=== PATIENT | female | born 1930 | race Caucasian/White ===

== ENCOUNTER → 2019-01-23 | Outpatient (CLI) | payer OTHER ==
[~2019-01-23] MED LIST: ANTIVERT25 MG PO; ASPIR 8181 MG PO; DIAZEPAM 2MG TAB2 MG PO; LOPRESSOR100 M1 PO; NORVASC5 MG PO; PLAVIX 75 MG TA75 MG PO; SCOPOLAMINE1 EACH TRANSDERM; VALIUM5 MG PO; ZOCOR20 MG PO; ZOFRAN ODT4 MG DISSOLVE
[2019-01-23 11:18] LABS: CALCIUM 9.1 mg/dL (8.5-10.1); CREATININE 1.1 mg/dL (0.6-1.3)
== END ==
LOC: M.LAB 10:28
PROVIDERS: Internal Medicine Cardiovascular Disease
DX: I10 Essential (primary) hypertension (principal)

== ENCOUNTER → 2019-10-07 | Outpatient (CLI) | payer OTHER ==
[2019-10-07 09:25] LABS: ANION GAP 10 mmol/L (7-16); BUN 17 mg/dL (7-18); CALCIUM 8.9 mg/dL (8.5-10.1); CHLORIDE 107 mmol/L (98-107); CHOLESTEROL 158 mg/dL (<200); CO2 26 mmol/L (21-32); CREATININE 1.2 mg/dL (0.6-1.3); GLUCOSE 98 mg/dL (70-99); HDL CHOLESTEROL 48 mg/dL (>40); LDL CHOLESTEROL 88 mg/dL (<100); POTASSIUM 4.5 mmol/L (3.5-5.1); SERUM ASSESSMENT Clear; SODIUM 143 mmol/L (136-145); TC:HDL 3.3 Ratio (Not establshd); TRIGLYCERIDE 113 mg/dL (<150); VLDL 23 mg/dL (<40)
== END ==
LOC: M.LAB 08:17
PROVIDERS: Nurse Practitioner
DX: E78.2 Mixed hyperlipidemia (principal); I10 Essential (primary) hypertension

== ENCOUNTER 2020-09-07 10:32 | Inpatient (IN) | payer OTHER ==
[~2020-09-07] VITALS: Ht 162.6 cm; Wt 76.2 kg
--- NOTE | ~2020-09-07 | EEG ---
[address] [address] EEG STUDY REPORT Name: KARMA MARCELO Room: [address] IN M.R.#: [id number] Admission: 09/07/20 Attend Phys: Martin Gill Discharge: Date of : 34 Report #: [id number] THIS REPORT FOR: cc: Tank Santizo MD, Arthur MD ~ Arnulfo Morales MD DATE OF SERVICE: 09/08/2020 This patient is being evaluated for confusion. EEG was done by placing the electrode by standard 10-20 system of electrode placement. Both referential and sequential montages were used for recording. Background activity in this patient's EEG is about 9-10 Hz and 30 microvolts. This patient became drowsy and that is associated with bilateral slowing and vertex sharp waves. Photic stimulation is unremarkable. Throughout the record, no active epileptiform activity was noticed. IMPRESSION: This patient's EEG is intermixed with slight theta range slowing on both sides. That is a nonspecific abnormality, which can occur with dementia, encephalopathy, effect of psychotropic medication, etc. Clinical correlation is recommended. By: [id number] Morales MD /nt
[2020-09-07 10:44] VITALS: BP 176/89
[2020-09-07 11:03] LABS: ABSOLUTE EOSINOPHILS 0.2 thou/uL (0.0-0.7); ABSOLUTE LYMPHOCYTES 1.7 thou/uL (0.8-5.3); ABSOLUTE MONOCYTES 0.5 thou/uL (0.0-1.2); ABSOLUTE NEUTROPHILS 3.9 thou/uL (1.6-8.1); BASOPHILS 0.7 %; EOSINOPHILS 2.4 %; HEMATOCRIT 44.2 % (37.0-47.0); HEMOGLOBIN 14.8 gm/dL (12.0-15.0); LYMPHOCYTES 26.3 %; MCH 30.5 pg (26.0-34.0); MCHC 33.6 g/dL (28.0-37.0); MCV 90.9 fL (80.0-100.0); MONOCYTES 8.5 %; MPV 8.5 fl. (7.2-11.1); NUCLEATED RBCS 0 /100WBC; PLATELET COUNT* 179 thou/uL (150-400); POLYS 62.1 %; RBC 4.86 mil/uL (4.20-5.00); RDW-CV 12.7 % (10.5-14.5); WBC 6.3 thou/uL (4.0-11.0)
[2020-09-07 11:07] LABS: CALCIUM 9.3 mg/dL (8.5-10.1); CREATININE 1.2 mg/dL (0.6-1.3); POTASSIUM 3.9 mmol/L (3.5-5.1)
[2020-09-07 11:12] LABS: ALBUMIN 3.8 g/dL (3.4-5.0); TOTAL BILIRUBIN 1.4 mg/dL (<0.1-1.0)
[2020-09-07 14:11] LABS: URINE BILIRUBIN NEGATIVE (Negative); URINE BLOOD NEGATIVE (Negative); URINE CLARITY CLEAR; URINE COLOR YELLOW; URINE GLUCOSE-RANDOM NEGATIVE (Negative); URINE KETONES NEGATIVE (Negative); URINE LEUKOCYTES-REFLEX NEGATIVE (Negative); URINE NITRITE-REFLEX NEGATIVE (Negative); URINE PROTEIN NEGATIVE (Negative); URINE UROBILINOGEN 0.2 E.U./dl (0.2-1.0)
[2020-09-07 16:00] VITALS: BP 163/69
--- NOTE | 2020-09-07 18:17 | EKG ---
[place] [address] ELECTROCARDIOGRAM REPORT Name: KARMA MARCELO Room: [place] [address] ADM [place] ..#: [id number] Admission: 09/07/20 Attend Phys: Amrit Jacob Discharge: Date of : 34 Date of Service: 09/07/20 1039 Report #: [id number] THIS REPORT FOR: //name// [facility] ED Test Date: 2020-09-07 Test Time: 10:39:27 Pat Name: KARMA MARCELO Department: Room: [facility] Gender: F Assistant Mechanic: TP : 1930 Requested By: Armand Alarcon Order Number: [id number] MD: Migel Zuñiga Measurements Intervals [place] Rate: 79 P: 73 VT: 155 QRS: 0 QRSD: 81 T: 55 QT: 431 QTc: 495 Interpretive Statements Sinus rhythm 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
[2020-09-07 19:35] LABS: APTT 28.2 Seconds (25.0-31.3); INR 1.1; PROTIME 11.4 Seconds (9.20-11.50)
[2020-09-07 20:16] VITALS: BP 157/95
[2020-09-08] VITALS: BP 153/50
[2020-09-08 04:00] VITALS: BP 114/42
[2020-09-08 06:17] LABS: CHOLESTEROL 148 mg/dL (<200); HDL CHOLESTEROL 46 mg/dL (>40); LDL CHOLESTEROL 81 mg/dL (<100); TC:HDL 3.2 Ratio (Not establshd); TRIGLYCERIDE 106 mg/dL (<150); VLDL 21 mg/dL (<40)
[2020-09-08 06:18] LABS: SERUM ASSESSMENT Clear
--- NOTE | 2020-09-08 13:03 | NUR ---
Pt is A&O. Resides at home alone. Independent and active. No DME. No hx of HH or SNF. Supportive sons that are involved in POC. Therapy evals ordered. ARU consult. Neuro following. Pt is hopeful to be able to return home. CM following for dc needs.
[2020-09-08 13:18] VITALS: BP 111/64; BP 128/44
--- NOTE | 2020-09-08 14:42 | 2DMMODE ---
[place] [address] 2 D/M-MODE ECHOCARDIOGRAM Name: KARMA MARCELO Room: [address] IN [facility].#: [id number] Admission: 09/07/20 Attend Phys: Amrit Jacob Discharge: Date of : 34 Date of Service: 09/08/20 1441 Report #: [id number] THIS REPORT FOR: cc: Tank Santizo MD, Arthur MD Holkins,Mac Dang MD [facility] ~ APPROVED REPORT Study performed: 09/08/2020 11:12:30 EXAM: Comprehensive 2D, Doppler, and color-flow Echocardiogram Patient Location: In-Patient Room #: [facility] Status: routine BSA: 1.82 HR: 58 bpm BP: 114/42 mmHg Rhythm: NSR Other Information Study Quality: Good Indications CVA/TIA Echo Enhancing Agent Indication: Rule out Shunt Agent(s) / Amount(s) Used: Agitated Saline 10 cc 2D Dimensions IVSd: 11.69 (7-11mm) LVOT Diam: 19.43 (18-24mm) LVDd: 49.78 mm PWd: 8.96 (7-11mm) Ascending Ao: 34.49 (22-36mm) LVDs: 27.99 (25-40mm) Aortic Root: 25.90 mm Volumes Left Atrial Volume (Systole) LA ESV Index: 29.80 mL/m2 Aortic Valve AoV Peak Javi.: 1.41 m/s AO Peak Gr.: 7.95 mmHg LVOT Max P.05 mmHg AO Mean Gr.: 4.23 mmHg LVOT Mean P.51 [place] [address] 2 D/M-MODE ECHOCARDIOGRAM Name: DAVIANKARMA Tejinder Room: [address] IN .R.#: [id number] Admission: 09/07/20 Attend Phys: Amrit Jacob Discharge: Date of : 34 Date of Service: 09/08/20 1441 Report #: [id number] LVOT Max V: 0.87 m/s AO V2 VTI: 30.20 cm LVOT Mean V: 0.56 m/s IFEANYI (VTI): 2.42 cm2 LVOT V1 VTI: 24.64 cm Mitral Valve E/A Ratio: 1.48 MV Decel. Time: 294.22 ms MV E Max Javi.: 0.61 m/s MV PHT: 85.32 ms MVA (PHT): 2.58 cm2 TDI E/Lateral E': 6.78 E/Medial E': 7.63 Medial E' Javi.: 0.08 m/s Lateral E' Javi.: 0.09 m/s Pulmonary Valve PV Peak Javi.: 0.76 m/s PV Peak Gr.: 2.33 mmHg Tricuspid Valve RAP Estimate: 5.00 mmHg TR Peak Gr.: 39.77 mmHg RVSP: 44.00 mmHg PA Pressure: 44.00 mmHg Left Ventricle The left ventricle is normal size. There is normal LV segmental wall motion. Borderline concentric left ventricular hypertrophy. Left ventricular systolic function is normal. The left ventricular ejection fraction is within the normal range. LVEF is 65%. The left ventricular diastolic function is normal. Right Ventricle The right ventricle is normal size. The right ventricular systolic function is normal. Atria Left atrium is mildly dilated. The interatrial septum is intact with no evidence for an atrial septal defect. The right atrium size is normal. Aortic Valve Mild aortic valve sclerosis. Trace aortic regurgitation. There is no aortic valvular stenosis. Mitral Valve The mitral valve is normal in structure. Mild [place] [address] 2 D/M-MODE ECHOCARDIOGRAM Name: KARMA MARCELO Room: [address] IN [facility]#: [id number] Admission: 09/07/20 Attend Phys: Amrit Jacob Discharge: Date of : 34 Date of Service: 09/08/20 1441 Report #: [id number] regurgitation. No evidence of mitral valve stenosis. Tricuspid Valve The tricuspid valve is normal in structure. Moderate tricuspid regurgitation. Moderate pulmonary hypertension. Pulmonic Valve The pulmonary valve is normal in structure. Trace pulmonic regurgitation. Great Vessels The aortic root is normal in size. IVC is normal in size and collapses >50% with inspiration. Pericardium There is no pericardial effusion. <Conclusion> The left ventricle is normal size. Borderline concentric left ventricular hypertrophy. Left ventricular systolic function is normal. The left ventricular ejection fraction is within the normal range. LVEF is 65%. The left ventricular diastolic function is normal. The right ventricle is normal size. Left atrium is mildly dilated. The right atrium size is normal. Mild aortic valve sclerosis. Trace aortic regurgitation. There is no aortic valvular stenosis. The mitral valve is normal in structure. Mild to moderate mitral regurgitation. The tricuspid valve is normal in structure. Moderate tricuspid regurgitation. Moderate pulmonary hypertension. IVC is normal in size and collapses >50% with inspiration. There is no pericardial effusion. There is normal LV segmental wall motion. The interatrial septum is intact with no evidence for an atrial septal defect. <ELECTRONICALLY SIGNED> By: Mac Schneider MD, FACC 09/08/20 144 [id number] 144 Mac Schneider MD, FACC /INF
[2020-09-08] MEDS ORDERED: ASPIR 8181 MG PO (18:41)
[2020-09-08] MEDS ORDERED: LOPRESSOR50 PO (18:41)
[2020-09-08] MEDS ORDERED: COZAAR 25 MG TA25 M2 PO (18:41)
[2020-09-08 18:47] VITALS: BP 111/64
[2020-09-09 02:06] LABS: GLYCOHEMOGLOBIN (HGB A1C) 5.4 % (4.8-5.6)
== END 2020-09-08 20:00 | disposition home or self-care (01) | DRG 149 ==
LOC: M.ERS 10:32 → M.2W 13:59 → M.TBA-ER 13:59 → M.2W 21:04
PROVIDERS: Emergency Medicine Emergency Medical Services; ADMIT Internal Medicine; ATTEND Internal Medicine
DX: H81.10 Benign paroxysmal vertigo, unspecified ear (principal); G93.41 Metabolic encephalopathy; K57.92 Diverticulitis of intestine, part unspecified, without perforation or abscess without bleeding; R00.2 Palpitations; I25.10 Atherosclerotic heart disease of native coronary artery without angina pectoris; G51.0 Bell's palsy; F03.90 Unspecified dementia, unspecified severity, without behavioral disturbance, psychotic disturbance, mood disturbance, and anxiety; Z20.822 Contact with and (suspected) exposure to COVID-19; Z90.710 Acquired absence of both cervix and uterus; Z79.899 Other long term (current) drug therapy; Z88.1 Allergy status to other antibiotic agents; Z88.8 Allergy status to other drugs, medicaments and biological substances; Z95.5 Presence of coronary angioplasty implant and graft; Z86.73 Personal history of transient ischemic attack (TIA), and cerebral infarction without residual deficits